=== PATIENT | female | born 1975 | race Two or more races ===

== ENCOUNTER 2016-11-28 09:04 | Emergency (ER) | payer MEDICAID, OTHER ==
[~2016-11-28] VITALS: Ht 154.9 cm; Wt 63.5 kg
[2016-11-28 10:33] VITALS: BP 122/77
[2016-11-28] MEDS ORDERED: KETOROLAC TROMETH 60MG/2ML VIAL IM ONE ×2 (11:43→11:45)
== END 2016-11-28 12:22 | disposition home or self-care (01) ==
LOC: ER 09:04
DX: R07.89 Other chest pain (principal); R10.11 Right upper quadrant pain; Z90.49 Acquired absence of other specified parts of digestive tract
CPT/HCPCS: 74176; 96372; 99284; J1885

== ENCOUNTER 2018-08-01 15:38 | Emergency (ER) | payer MEDICAID ==
[~2018-08-01] VITALS: Ht 154.9 cm; Wt 75.7 kg
[2018-08-01 16:59] VITALS: BP 126/78
[2018-08-01] MEDS ORDERED: cefTRIAXone SOD 1,000 MG VL IM ONE (17:15)
[2018-08-01] MEDS ORDERED: KETOROLAC TROMETH 60MG/2ML VIAL IM ONE (17:15)
== END 2018-08-01 17:39 | disposition home or self-care (01) ==
LOC: ER 15:45
DX: H66.92 Otitis media, unspecified, left ear (principal); J02.9 Acute pharyngitis, unspecified
CPT/HCPCS: 96372; 99283; J0696; J1885

== ENCOUNTER 2023-06-18 12:17 | Emergency (ER) | payer MEDICAID ==
[~2023-06-18] VITALS: Ht 154.9 cm; Wt 68.4 kg
[2023-06-18] MEDS ORDERED: ZOFR4T PO (14:14)
[2023-06-18 14:41] VITALS: BP 131/80; PULSE 87; RESP 17; TEMP 97.8; O2SAT 98
== END 2023-06-18 14:44 | disposition home or self-care (01) ==
LOC: ER 12:17
DX: S09.90XA Unspecified injury of head, initial encounter (principal); F17.210 Nicotine dependence, cigarettes, uncomplicated; Z90.49 Acquired absence of other specified parts of digestive tract; Z79.899 Other long term (current) drug therapy; X58.XXXA Exposure to other specified factors, initial encounter; Y93.89 Activity, other specified; Y92.89 Other specified places as the place of occurrence of the external cause; Y99.8 Other external cause status
CPT/HCPCS: 70450; 81025

== ENCOUNTER 2024-02-28 00:13 | Emergency (ER) | payer MEDICAID ==
[~2024-02-28] VITALS: Ht 152.4 cm; Wt 67.8 kg
[~2024-02-28 00:13] MED LIST: ZOFR4T PO
[2024-02-28 01:04] LABS: Urine Bacteria None Seen /hpf (None Seen)
[2024-02-28 01:32] LABS: Urine Blood 3+ /uL (Negative); Urine Clarity Clear (Clear); Urine Color Light-Yellow (Yellow); Urine Mucus FEW (None Seen); Urine Protein, UAD Negative (Negative); Urine Specific Gravity 1.023 (1.001-1.035); Urine Urobilinogen Normal (Negative); Urine WBC 4 /hpf (0 - 5)
[2024-02-28 03:04] LABS: Basophils # (auto) 0.1 10 ^3/uL (0-0.2); Basophils % (auto) 0.8 % (0.0-2.0); Eosinophils # (auto) 0.3 10 ^3/uL (0-0.8); Eosinophils % (auto) 3.6 % (0.0-7.0); Hematocrit 40.8 % (36.0-46.0); Hemoglobin 13.6 g/dL (12.2-16.2); Lymphocytes # (auto) 2.9 10 ^3/uL (0.4-5.4); Lymphocytes % (auto) 37.2 % (10.0-50.0); Mean Corpuscular Hemoglobin 29.6 pg (28.0-32.0); Mean Corpuscular Hgb Conc. 33.3 g/dL (32.0-36.0); Monocytes # (auto) 0.6 10 ^3/uL (0-1.3); Monocytes % (auto) 7.3 % (0.0-12.0); Neutrophils # (auto) 3.9 10 ^3/uL (1.6-8.6); Neutrophils % (auto) 51.1 % (37.0-80.0); Red Blood Cells 4.59 10^6/uL (4.0-5.20); Red Cell Distribution Width 13.5 % (11.8-14.3); White Blood Cell 7.7 10^3/uL (4.4-10.8)
[2024-02-28] MEDS: KETOROLAC TROMETH 60MG/2ML VIAL IM ONE (03:14)
[2024-02-28 03:15] VITALS: PULSE 84; RESP 19; TEMP 98.7; O2SAT 100
[2024-02-28 03:27] LABS: Alanine Aminotransferase 527 U/L (7-40); Alkaline Phosphatase 222 U/L (46-116); Anion Gap 6 (5-15); Aspartate Aminotransferase 102 U/L (13-40); BUN/Creatinine Ratio 20.4 (10.0-20.0); Bilirubin, Total 0.3 mg/dL (0.2-1.0); Blood Urea Nitrogen 11 mg/dL (9-23); Calcium 9.3 mg/dL (8.7-10.4); Carbon Dioxide 28 mmol/L (20-30); Chloride 105 mmol/L (98-107); Glucose 109 mg/dL (74-106); Potassium 4.1 mmol/L (3.5-5.1); Sodium 139 mmol/L (136-145); Total Protein 6.9 g/dL (5.7-8.2)
[2024-02-28] MEDS ORDERED: TAMS-35 PO (03:42)
[2024-02-28] MEDS ORDERED: NAP500T GT (03:42)
[2024-02-28] MEDS: TAMSULOSIN HYDROCHLORIDE 0.4 MG CAP PO ONE (04:01)
[2024-02-28] MEDS: HYDROcodone-ACET 5/325MG TAB PO ONE (04:05)
[2024-02-28 04:08] VITALS: BP 109/79; PULSE 81; RESP 18; O2SAT 100
== END 2024-02-28 04:10 | disposition home or self-care (01) ==
LOC: ER 00:13
DX: N23 Unspecified renal colic (principal); F17.210 Nicotine dependence, cigarettes, uncomplicated; F12.90 Cannabis use, unspecified, uncomplicated; Z90.49 Acquired absence of other specified parts of digestive tract; Z98.890 Other specified postprocedural states
CPT/HCPCS: 36415; 74176; 80053; 81001; 81025; 85025; 96372; 99285; J1885

== ENCOUNTER 2024-07-07 22:42 | Emergency (ER) | payer MEDICAID ==
[~2024-07-07] VITALS: Ht 154.9 cm; Wt 66.9 kg
[~2024-07-07 22:42] MED LIST changes: +NAP500T GT; +TAMS-35 PO
--- NOTE | 2024-07-07 23:45 | ED.PDOC ---
GI ASSESSMENT HPI Comments This is a 48-year-old female presents to the ED chief complaint flu-like symptoms x2 days. Patient reports nausea, cough, and congestion. States has not tried anything [id number] for relief measures. She reports no recent ill contacts. No recent travel. Currently denies chest pain, difficulty breathing, shortness of breath, vomiting, or diarrhea. Chief Complaint: Flu like Time Seen by MD: 22:53 Primary Care Provider: UNKNOWN Reviewed Notes: Nurses Notes, Medications, Allergies Allergies: Coded Allergies: NO KNOWN ALLERGIES (Unverified , 11/28/16) Home Meds Active Scripts Naproxen (NAPROSYN TABLET) 500 Mg Tb, 500 MG GT BID for 10 Days, #20 TAB Prov:LARRY PRESTON MD 02/28/24 Tamsulosin Hcl (Flomax) 0.4 Mg Cap, 0.4 MG PO DAILY for 5 Days, #5 CAP Prov:LARRY PRESTON MD 02/28/24 Ondansetron Odt 4MG Tab (ZOFRAN PO) 4 Mg Tb, 4 MG PO Q8HP PRN for 5 Days, #15 TAB ODT TAB-DISSOLVE IN MOUTH, THEN SWALLOW Prov:ANA SEVILLA MD 06/18/23 Information Source: Patient Mode of Arrival: Ambulatory Past Medical History PAST MEDICAL HISTORY: Denies Surgical History: BTL, Cholecystectomy, [employer] History: No Pertinent [employer] History Family History Family History: Family hx of DM Social History Smoker: Cigarettes Alcohol: Occasionally Drugs: Marijuana Lives In: Home Constitutional: reports: chills; denies: diaphoresis, fatigue, fever, malaise, sweats, weakness, others EENTM: reports: nasal discharge; denies: blurred vision, double vision, ear bleeding, ear discharge, ear drainage, ear pain, ear ringing, eye pain, eye redness, hearing loss, mouth pain, mouth swelling, nose bleeding, nose congestion, nose pain, photophobia, tearing, throat pain, throat swelling, voice changes, others Respiratory: reports: cough; denies: hemoptysis, orthopnea, SOB at rest, shortness of breath, SOB with excertion, stridor, wheezing, others Cardiovascular: denies: chest pain, dizzy spells, diaphoresis, Dyspnea on exertion, edema, irregular heart beat, left arm pain, lightheadedness, palpitations, PND, syncope, others Gastrointestinal: reports: nausea; denies: abdomen distended, abdominal pain, blood streaked bowels, constipated, diarrhea, dysphagia, difficulty swallowing, hematemesis, melena, poor appetite, poor fluid intake, rectal bleeding, rectal pain, vomiting, others Genitourinary: denies: abnormal vagina bleeding, burning, dyspareunia, dysuria, flank pain, frequency, hematuria, incontinence, pain, , vagina discharge, urgency, others Neurological: reports: headache; denies: dizziness, fainting, left sided numbness, left sided weakness, numbness, paresthesia, pre-existing deficit, right sided numbness, right sided weakness, seizure, speech problems, tingling, tremors, weakness, others Musculoskeletal: denies: back pain, gout, joint pain, joint swelling, muscle pain, muscle stiffness, neck pain, others Integumetry: denies: bruises, change in color, change in hair/nails, dryness, laceration, lesions, lumps, rash, wounds, others Allergic/Immunocompromised: denies: Difficulty Healing, Frequent Infections, Hives, Itching, others Hematologic/Lymphatic: denies: anemia, blood clots, easy bleeding, easy bruising, swollen glands, others Endocrine: denies: excessive hunger, excessive sweating, excessive thirst, excessive urination, flushing, intolerance to cold, intolerance to heat, unexplained weight gain, unexplained weight loss, others Psychiatric: denies: anxiety, bipolar disorder, depression, hopeless, panic dis order, schizophrenia, sleepless, suicidal, others Physical Exam General Appearance: No Apparent Distress, Normal HEENT: Pharyngeal Erythema, TMs Normal Neck: Full Range of Motion, Non-Tender Respiratory: Lungs Clear, No Accessory Muscle Use, No Respiratory Distress, Normal Breath Sounds Cardiovascular: No Murmur, Normal Peripheral Pulses, Regular Rate/Rhythm Breast Exam: Deferred Gastrointestinal: No Organomegaly, Non Tender, No Pulsatile Mass, Normal Bowel Sounds, Soft Genitalia: Deferred Pelvic: Deferred Rectal: Deferred Extremities: Normal capillary refill, Normal inspection, Normal range of motion, Non-tender, No pedal edema Musculoskeletal : Apperance: Normal Neurologic: Alert, 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 Was a procedure done?: No GI differential Dx Differential Diagnosis: Gastroenteritis X-Ray, Labs, Meds, VS Vital Signs Date Time Temp Pulse Resp B/P (MAP) Pulse Ox O2 Delivery O2 Flow Rate FiO2 07/08/24 00:22 92 19 98 Room Air 07/08/24 00:22 98.2 92 19 133/93 (106) 98 98.2 07/07/24 23:08 98.0 98 16 146/94 (111) 98 Lab Test 07/07/24 23:29 Range/Units Influenza Type A Antigen Negative Negative Influenza Type B Antigen Negative Negative SARS-CoV-2 Antigen (Rapid) Negative NEGATIVE Current Medications Medications (Trade) Dose Ordered Sig/Cherelle Route Start Time Stop Time Status Last Admin Ketorolac Tromethamine (Toradol Injection) 60 mg ONCE ONCE IM 07/07/24 23:30 07/07/24 23:31 DC 07/07/24 23:49 Ondansetron HCl (Zofran Po) 4 mg ONCE ONCE PO 07/07/24 23:45 07/07/24 23:46 DC 07/07/24 23:49 X-Ray, Labs, Meds, VS Comment Influenza a and B and COVID swabs negative Patient given Toradol 60 mg IM for the headache and body aches, and also given Zofran 4 mg p.o. for the nausea. Patient reports history of anxiety patient patient with panic attack [employer] stated she can not breathe she needs a breathing treatment however lungs are clear tall upper respiratory she states history of anxiety with panic disorder. Patient given Ativan 1 mg p.o. tolerated well. Likely upper respiratory infection trial Medrol Dosepak and Augmentin script to pharmacy. Advised to rest increase p.o. fluids with electrolytes. Advised to follow up with her PCP in 2-3 days for management of her anxiety. ER return precautions given patient indicated understanding agrees with discharge plan of care Time of 1ST Reevaluation: 00:33 Reevaluation 1ST: Improved Patient Education/Counseling: Diagnosis, Treatment, Prognosis, Need For Follow Up Family Education/Counseling: No Family Present Departure 1 Departure Time of Disposition: 00:33 Impression: Primary Impression: Upper respiratory infection Qualified Codes: J06.9 - Acute upper respiratory infection, unspecified Disposition: HOME / SELF CARE / HOMELESS Condition: Stable e-Prescriptions Methylprednisolone (Medrol Dosepak) 4 Mg Sony 4 MG PO UD for 6 Days, #21 TAB UAD Prov: RYANN LAIRD 07/08/24 Amoxicillin & Pot Clavulanate (AUGMENTIN TABLET) 875 Mg Tb 875 MG PO BID for 7 Days, #14 TAB Prov: RYANN LAIRD 07/08/24 Discharged With: Significant Other Critical Care Note Critical Care Time?: No Stability Stability form required: No RYANN LAIRD Jul 07, 2024 23:45
[2024-07-07] MEDS: KETOROLAC TROMETH 60MG/2ML VIAL IM ONE (23:49)
[2024-07-07] MEDS: ONDANSETRON ODT 4 MG TAB PO ONE (23:49)
[2024-07-08 00:22] VITALS: BP 133/93; PULSE 92; RESP 19; TEMP 98.2; O2SAT 98
[2024-07-08 00:29] LABS: COVID19 ANTIGEN SOFIA FIA NEGATIVE (NEGATIVE); Rapid Influenza A Negative (Negative); Rapid Influenza B Negative (Negative)
[2024-07-08] MEDS ORDERED: AUG875T PO (00:34)
[2024-07-08] MEDS ORDERED: METH4PAK PO (00:34)
[2024-07-08] MEDS: LORazepam 0.5 MG TAB PO ONE (00:43)
== END 2024-07-08 00:44 | disposition home or self-care (01) ==
LOC: ER 22:42
DX: J06.9 Acute upper respiratory infection, unspecified (principal); F17.210 Nicotine dependence, cigarettes, uncomplicated; Z79.1 Long term (current) use of non-steroidal anti-inflammatories (NSAID); Z90.49 Acquired absence of other specified parts of digestive tract; Z98.51 Tubal ligation status; Z20.822 Contact with and (suspected) exposure to COVID-19
CPT/HCPCS: 36415; 87426; 87804; 96372; 99283; J1885; Q0162